=== PATIENT | female | born 1960 | race Two or more races ===

== ENCOUNTER → 2018-10-04 | Outpatient (CLI) | payer OTHER ==
[~2018-10-04] MED LIST: GABAPENTIN100 MG
== END | disposition home or self-care (01) ==
LOC: NUCLEAR 10-03 09:00
DX: E04.2 Nontoxic multinodular goiter (principal)
CPT/HCPCS: 78013; A9512

== ENCOUNTER → 2018-10-27 | Outpatient (CLI) | payer OTHER | END | disposition home or self-care (01) | LOC: SONOGRAMA 09:00 | DX: E04.1 Nontoxic single thyroid nodule (principal) ==

== ENCOUNTER 2021-07-17 20:31 | Inpatient (IN) | payer OTHER ==
[~2021-07-17] VITALS: Ht 157.5 cm; Wt 53.5 kg
[2021-08-12] MEDS ORDERED: VITAMIN B-121000 MC2 SL (15:19)
[2021-08-12] MEDS ORDERED: METOPROLOL TART50 MG PO (15:19)
[2021-08-12] MEDS ORDERED: PROTONIX40 MG PO (15:19)
[2021-08-12] MEDS ORDERED: INTEGRA PLUS C1 EACH PO (15:19)
[2021-08-12] MEDS ORDERED: DULCOLAX5 MG PO (15:19)
[2021-08-12] MEDS ORDERED: PEPCID AC20 MG PO (15:19)
[2021-08-12] MEDS ORDERED: ZINC OXIDE60 GM TOP (15:19)
[2021-08-12] MEDS ORDERED: PROTEINEX-18 LI30 ML PO (15:19)
[2021-08-12] MEDS ORDERED: TRAMADOL HCL50 MG PO (15:19)
[2021-08-12] MEDS ORDERED: CALCIUM 500-VI1 EAC6 PO (15:19)
== END 2021-08-12 18:39 | DRG 870 ==
LOC: ER 20:31 → ICU-2 07-18 15:01 → ICU 07-18 15:01 → MEDJ 08-10 13:23
PROVIDERS: ADMIT Internal Medicine; ATTEND Internal Medicine
PROC: BW21YZZ Computerized Tomography (CT Scan) of Abdomen and Pelvis using Other Contrast (ICD-10-PCS; 2021-07-17)
PROC: 4A12X4Z Monitoring of Cardiac Electrical Activity, External Approach (ICD-10-PCS; 2021-07-18)
PROC: 5A0945A Assistance with Respiratory Ventilation, 24-96 Consecutive Hours, High Flow/Velocity Cannula (ICD-10-PCS; 2021-07-18)
PROC: B246ZZZ Ultrasonography of Right and Left Heart (ICD-10-PCS; 2021-07-18)
PROC: 5A1955Z Respiratory Ventilation, Greater than 96 Consecutive Hours (ICD-10-PCS; principal; 2021-07-19)
PROC: 0BH17EZ Insertion of Endotracheal Airway into Trachea, Via Natural or Artificial Opening (ICD-10-PCS; 2021-07-19)
PROC: 02HV33Z Insertion of Infusion Device into Superior Vena Cava, Percutaneous Approach (ICD-10-PCS; 2021-07-19)
PROC: 3E0436Z Introduction of Nutritional Substance into Central Vein, Percutaneous Approach (ICD-10-PCS; 2021-07-19)
PROC: 30243R1 Transfusion of Nonautologous Platelets into Central Vein, Percutaneous Approach (ICD-10-PCS; 2021-07-23)
PROC: BW24ZZZ Computerized Tomography (CT Scan) of Chest and Abdomen (ICD-10-PCS; 2021-07-24)
PROC: 30243N1 Transfusion of Nonautologous Red Blood Cells into Central Vein, Percutaneous Approach (ICD-10-PCS; 2021-07-25)
PROC: B020ZZZ Computerized Tomography (CT Scan) of Brain (ICD-10-PCS; 2021-07-29)
PROC: B54PZZZ Ultrasonography of Bilateral Upper Extremity Veins (ICD-10-PCS; 2021-07-30)
PROC: B34KZZZ Ultrasonography of Bilateral Upper Extremity Arteries (ICD-10-PCS; 2021-07-30)
PROC: 3E0F7SF Introduction of Other Gas into Respiratory Tract, Via Natural or Artificial Opening (ICD-10-PCS; 2021-08-04)
DX: A41.89 Other specified sepsis (principal); R65.21 Severe sepsis with septic shock; J96.00 Acute respiratory failure, unspecified whether with hypoxia or hypercapnia; D65 Disseminated intravascular coagulation [defibrination syndrome]; I21.A1 Myocardial infarction type 2; I67.83 Posterior reversible encephalopathy syndrome; N17.8 Other acute kidney failure; E87.2 Acidosis; N39.0 Urinary tract infection, site not specified; K55.8 Other vascular disorders of intestine; G93.49 Other encephalopathy; E87.0 Hyperosmolality and hypernatremia; E86.0 Dehydration; K72.90 Hepatic failure, unspecified without coma; I80.8 Phlebitis and thrombophlebitis of other sites; I95.89 Other hypotension; K59.09 Other constipation

== ENCOUNTER 2021-08-17 12:51 | Inpatient (IN) | payer OTHER ==
[~2021-08-17] VITALS: Ht 162.6 cm; Wt 0.5 kg
[~2021-08-17 12:51] MED LIST changes: +CALCIUM 500-VI1 EAC6 PO; +DULCOLAX5 MG PO; +INTEGRA PLUS C1 EACH PO; +METOPROLOL TART50 MG PO; +PEPCID AC20 MG PO; +PROTEINEX-18 LI30 ML PO; +PROTONIX40 MG PO; +TRAMADOL HCL50 MG PO; +VITAMIN B-121000 MC2 SL; +ZINC OXIDE60 GM TOP
[2021-09-24] MEDS ORDERED: ZOLPIDEM TARTRA10 MG PO (09:12)
[2021-09-24] MEDS ORDERED: INTEGRA PLUS C1 EACH PO (09:12)
[2021-09-24] MEDS ORDERED: DELZICOL400 M1 PO (09:12)
[2021-09-24] MEDS ORDERED: MICRO-K 1010 MEQ PO (09:12)
[2021-09-24] MEDS ORDERED: FOLIC ACID1 MG PO (09:12)
[2021-09-24] MEDS ORDERED: LUBRIDERM DAIL177 ML TOP (09:12)
[2021-09-24] MEDS ORDERED: PROTEINEX-18 LI30 ML PO (09:12)
[2021-09-24] MEDS ORDERED: TOPROL XL50 M1 PO (09:12)
[2021-09-24] MEDS ORDERED: CHOLESTYRAMINE P4 GM PO (09:12)
[2021-09-24] MEDS ORDERED: Neurin-Sl Tablet Sl SL (09:12)
[2021-09-24] MEDS ORDERED: INTESTINEX680 M1 PO (09:12)
[2021-09-24] MEDS ORDERED: CARAFATE1 GM PO (09:12)
[2021-09-24] MEDS ORDERED: PROTONIX40 MG PO (09:14)
== END 2021-09-24 13:21 | DRG 758 ==
LOC: ER 12:51 → MEDJ 22:37
PROVIDERS: ADMIT Internal Medicine; ATTEND Internal Medicine
PROC: 8E0ZXY6 Isolation (ICD-10-PCS; 2021-08-17)
PROC: 0DBM8ZX Excision of Descending Colon, Via Natural or Artificial Opening Endoscopic, Diagnostic (ICD-10-PCS; principal; 2021-08-29)
PROC: 0DBL8ZX Excision of Transverse Colon, Via Natural or Artificial Opening Endoscopic, Diagnostic (ICD-10-PCS; 2021-08-29)
PROC: 0DBN8ZX Excision of Sigmoid Colon, Via Natural or Artificial Opening Endoscopic, Diagnostic (ICD-10-PCS; 2021-08-29)
PROC: 0DBP8ZX Excision of Rectum, Via Natural or Artificial Opening Endoscopic, Diagnostic (ICD-10-PCS; 2021-08-29)
PROC: 30243N1 Transfusion of Nonautologous Red Blood Cells into Central Vein, Percutaneous Approach (ICD-10-PCS; 2021-08-31)
PROC: 0DB98ZX Excision of Duodenum, Via Natural or Artificial Opening Endoscopic, Diagnostic (ICD-10-PCS; 2021-09-01)
PROC: 0DB78ZX Excision of Stomach, Pylorus, Via Natural or Artificial Opening Endoscopic, Diagnostic (ICD-10-PCS; 2021-09-01)
PROC: 0DB68ZX Excision of Stomach, Via Natural or Artificial Opening Endoscopic, Diagnostic (ICD-10-PCS; 2021-09-01)
DX: B37.49 Other urogenital candidiasis (principal); B25.8 Other cytomegaloviral diseases; B49 Unspecified mycosis; K52.89 Other specified noninfective gastroenteritis and colitis; K25.9 Gastric ulcer, unspecified as acute or chronic, without hemorrhage or perforation; A08.8 Other specified intestinal infections; E83.51 Hypocalcemia; E86.0 Dehydration; R53.81 Other malaise; F43.21 Adjustment disorder with depressed mood; D64.89 Other specified anemias; R33.8 Other retention of urine; E83.42 Hypomagnesemia; E83.39 Other disorders of phosphorus metabolism; M21.371 Foot drop, right foot; E87.6 Hypokalemia
CPT/HCPCS: 74185

== ENCOUNTER 2021-09-28 15:22 | Inpatient (IN) | payer OTHER ==
[~2021-09-28] VITALS: Ht 152.4 cm; Wt 75.3 kg
[~2021-09-28 15:22] MED LIST changes: +CARAFATE1 GM PO; +CHOLESTYRAMINE P4 GM PO; +DELZICOL400 M1 PO; +FOLIC ACID1 MG PO; +INTESTINEX680 M1 PO; +LUBRIDERM DAIL177 ML TOP; +MICRO-K 1010 MEQ PO; +Neurin-Sl Tablet Sl SL; +TOPROL XL50 M1 PO; +ZOLPIDEM TARTRA10 MG PO
[2021-09-28] MEDS ORDERED: AMLODIPINE-OLM1 EAC2 PO (15:34)
== END 2021-11-12 19:37 | DRG 865 ==
LOC: ER 15:22 → MEDJ 09-30 14:50 → ICU 09-30 14:50 → MEDJ 10-21 13:21 → ICU 10-21 15:43 → MEDJ 10-21 20:41 → O/R 11-07 16:11 → MEDJ 11-07 16:12
PROVIDERS: ADMIT Internal Medicine; ATTEND Internal Medicine
PROC: 30243N1 Transfusion of Nonautologous Red Blood Cells into Central Vein, Percutaneous Approach (ICD-10-PCS; 2021-10-01)
PROC: 02HV33Z Insertion of Infusion Device into Superior Vena Cava, Percutaneous Approach (ICD-10-PCS; 2021-10-01)
PROC: 30243R1 Transfusion of Nonautologous Platelets into Central Vein, Percutaneous Approach (ICD-10-PCS; 2021-10-03)
PROC: 0BH17EZ Insertion of Endotracheal Airway into Trachea, Via Natural or Artificial Opening (ICD-10-PCS; 2021-10-04)
PROC: 5A1955Z Respiratory Ventilation, Greater than 96 Consecutive Hours (ICD-10-PCS; 2021-10-04)
PROC: 5A0935A Assistance with Respiratory Ventilation, Less than 24 Consecutive Hours, High Flow/Velocity Cannula (ICD-10-PCS; 2021-10-15)
PROC: 3E0F7SF Introduction of Other Gas into Respiratory Tract, Via Natural or Artificial Opening (ICD-10-PCS; 2021-10-16)
PROC: 4A12X4Z Monitoring of Cardiac Electrical Activity, External Approach (ICD-10-PCS; 2021-10-21)
PROC: 0DBM8ZX Excision of Descending Colon, Via Natural or Artificial Opening Endoscopic, Diagnostic (ICD-10-PCS; principal; 2021-10-28)
PROC: 0DBN8ZX Excision of Sigmoid Colon, Via Natural or Artificial Opening Endoscopic, Diagnostic (ICD-10-PCS; 2021-10-28)
DX: B25.8 Other cytomegaloviral diseases (principal); J96.02 Acute respiratory failure with hypercapnia; I26.99 Other pulmonary embolism without acute cor pulmonale; K55.9 Vascular disorder of intestine, unspecified; D61.818 Other pancytopenia; E46 Unspecified protein-calorie malnutrition; A08.39 Other viral enteritis; E87.2 Acidosis; J91.8 Pleural effusion in other conditions classified elsewhere; I82.443 Acute embolism and thrombosis of tibial vein, bilateral; I82.412 Acute embolism and thrombosis of left femoral vein; E86.0 Dehydration; E87.6 Hypokalemia; E83.51 Hypocalcemia; E83.39 Other disorders of phosphorus metabolism; E83.42 Hypomagnesemia; D63.8 Anemia in other chronic diseases classified elsewhere; D50.0 Iron deficiency anemia secondary to blood loss (chronic); B37.3 Candidiasis of vulva and vagina; R53.81 Other malaise; Z68.26 Body mass index [BMI] 26.0-26.9, adult
CPT/HCPCS: 74185

== ENCOUNTER 2022-02-04 17:59 | Emergency (ER) | payer OTHER ==
[~2022-02-04] VITALS: Ht 157.5 cm; Wt 49.9 kg
[~2022-02-04 17:59] MED LIST changes: +AMLODIPINE-OLM1 EAC2 PO
== END 2022-02-05 16:34 | disposition home or self-care (01) ==
LOC: ER 17:59
DX: R10.84 Generalized abdominal pain (principal); K52.9 Noninfective gastroenteritis and colitis, unspecified; K57.30 Diverticulosis of large intestine without perforation or abscess without bleeding; R18.8 Other ascites; I50.20 Unspecified systolic (congestive) heart failure; I10 Essential (primary) hypertension

== ENCOUNTER 2022-02-12 06:30 | Day surgery (SDC) | payer OTHER | END 2022-02-12 13:15 | disposition home or self-care (01) | LOC: AMB-ENDOS 06:30 | PROVIDERS: ATTEND Internal Medicine Gastroenterology | DX: K52.89 Other specified noninfective gastroenteritis and colitis (principal); K63.5 Polyp of colon ==

== ENCOUNTER 2022-06-23 08:33 | Outpatient (CLI) | payer OTHER | END 2022-06-23 08:49 | disposition home or self-care (01) | LOC: TOM 08:33 | PROVIDERS: ATTEND Internal Medicine Gastroenterology | DX: K52.89 Other specified noninfective gastroenteritis and colitis (principal); R19.7 Diarrhea, unspecified ==

== ENCOUNTER → 2022-07-02 | Day surgery (SDC) | payer OTHER | END | disposition home or self-care (01) | LOC: ADM 06-30 13:00 → AMB-ENDOS 06:38 → CIR.AMB 13:00 | PROVIDERS: ATTEND Internal Medicine Gastroenterology | DX: K52.89 Other specified noninfective gastroenteritis and colitis (principal); R19.7 Diarrhea, unspecified; Z20.822 Contact with and (suspected) exposure to COVID-19 ==

== ENCOUNTER 2022-08-18 07:41 | Outpatient (CLI) | payer OTHER | END 2022-08-18 07:53 | disposition home or self-care (01) | LOC: TOM 07:41 | DX: Z86.711 Personal history of pulmonary embolism (principal) ==

== ENCOUNTER 2022-08-24 10:13 | Outpatient (CLI) | payer OTHER | END 2022-08-24 10:17 | disposition home or self-care (01) | LOC: NUCLEAR 10:13 | PROVIDERS: ATTEND Internal Medicine | DX: I82.5Z3 Chronic embolism and thrombosis of unspecified deep veins of distal lower extremity, bilateral (principal) ==

== ENCOUNTER 2022-09-22 08:15 | Inpatient (IN) | payer OTHER ==
[~2022-09-22] VITALS: Ht 157.5 cm; Wt 45.4 kg
[2022-09-22] MEDS ORDERED: TOPROL XL50 M1 PO (12:08)
[2022-09-22] MEDS ORDERED: ELIQUIS2.5 MG PO (12:08)
[2022-09-22] MEDS ORDERED: LASIX20 MG PO (12:09)
[2022-09-22] MEDS ORDERED: GABAPEN PO (12:09)
[2022-09-22] MEDS ORDERED: RESTORIL30 M1 PO (12:09)
[2022-09-29] MEDS ORDERED: GABAPENTIN400 MG (14:34)
== END 2022-10-02 11:47 | disposition home or self-care (01) | DRG 331 ==
LOC: O/R 09-29 06:36 → SURH 09-29 08:15 → OB/GYN 09-29 18:16 → O/R 09-30 01:35 → SURG 09-30 14:31 → O/R 10-01 12:29 → SURG 10-01 12:30
PROVIDERS: ADMIT Colon & Rectal Surgery; ATTEND Colon & Rectal Surgery
PROC: 0DBU4ZZ Excision of Omentum, Percutaneous Endoscopic Approach (ICD-10-PCS; 2022-09-29)
PROC: 3E0F7SF Introduction of Other Gas into Respiratory Tract, Via Natural or Artificial Opening (ICD-10-PCS; 2022-09-29)
PROC: 30233N1 Transfusion of Nonautologous Red Blood Cells into Peripheral Vein, Percutaneous Approach (ICD-10-PCS; 2022-09-29)
PROC: 0DTE4ZZ Resection of Large Intestine, Percutaneous Endoscopic Approach (ICD-10-PCS; principal; 2022-09-29 14:30)
PROC: 30233N1 Transfusion of Nonautologous Red Blood Cells into Peripheral Vein, Percutaneous Approach (ICD-10-PCS; 2022-09-30)
PROC: 4A12X4Z Monitoring of Cardiac Electrical Activity, External Approach (ICD-10-PCS; 2022-10-01)
DX: K55.9 Vascular disorder of intestine, unspecified (principal); R59.0 Localized enlarged lymph nodes; I95.81 Postprocedural hypotension; I48.0 Paroxysmal atrial fibrillation; D50.0 Iron deficiency anemia secondary to blood loss (chronic); I11.9 Hypertensive heart disease without heart failure

== ENCOUNTER 2024-04-24 13:50 | Outpatient (CLI) | payer OTHER ==
[~2024-04-24 13:50] MED LIST changes: +ELIQUIS2.5 MG PO; +GABAPEN PO; +GABAPENTIN400 MG; +LASIX20 MG PO; +RESTORIL30 M1 PO
== END 2024-04-24 13:57 | disposition home or self-care (01) ==
LOC: MAMO-SONO 13:50
PROVIDERS: ATTEND Internal Medicine
DX: Z12.31 Encounter for screening mammogram for malignant neoplasm of breast (principal)

== ENCOUNTER 2024-05-08 08:34 | Outpatient (CLI) | payer OTHER | END 2024-05-08 08:35 | disposition home or self-care (01) | LOC: NUCLEAR 08:34 | PROVIDERS: ATTEND Internal Medicine | DX: Z13.820 Encounter for screening for osteoporosis (principal); M81.0 Age-related osteoporosis without current pathological fracture ==

== ENCOUNTER → 2025-05-08 | Outpatient (CLI) | payer OTHER | END | disposition home or self-care (01) | LOC: MAMO-SONO 12:26 | PROVIDERS: ATTEND Internal Medicine | DX: N64.4 Mastodynia (principal) ==